=== PATIENT | female | born 1995 | race African-American/Black ===

== ENCOUNTER 2020-12-13 15:54 | Emergency (ER) | payer BC ==
[~2020-12-13] VITALS: Ht 180.3 cm; Wt 73.0 kg
--- NOTE | 2020-12-13 16:09 | NUR ---
The patient is [id number], c/o nausea vomiting, admits on smoking weed 4hrs [employer]. Denies pain. In room air and denies SOB. Respiration regular and unlabored. Abdomen soft and non-distended. Denies nausea/vomiting at this time. Attached to the monitor. Warm blanket provided for comfort. Will continue to monitor the patient.
[2020-12-13] MEDS ORDERED: IV NS 0.9% 1,000 ML BAG IV ONE (16:30)
[2020-12-13 16:36] LABS: BASOPHILS % (AUTO) 0.2 % (0.0-2.0); EOSINOPHILS % (AUTO) 1.8 % (0.0-6.0); HEMATOCRIT 40 % (33-45); HEMOGLOBIN 13.3 g/dL (11.5-14.8); LYMPHOCYTES # (AUTO) 1.5 K/uL (0.8-4.8); LYMPHOCYTES % (AUTO) 29.5 % (20.0-44.0); MEAN CORPUSCULAR HGB CONC 33 g/dl (31.0-36.0); MEAN CORPUSCULAR VOLUME 92 fL (82-100); MONOCYTES # (AUTO) 0.4 K/uL (0.1-1.30); MONOCYTES % (AUTO) 7.7 % (2.0-12.0); NEUTROPHILS % (AUTO) 60.8 % (43.0-81.0); PLATELET COUNT (AUTO) 190 K/uL (150-450); RED BLOOD CELL COUNT(AUTO) 4.36 MIL/uL (4.0-5.2)
[2020-12-13 16:43] LABS: CALCIUM, SERUM 8.8 mg/dL (8.5-10.1); CREATININE 0.9 mg/dL (0.6-1.3); POTASSIUM 3.8 mmol/L (3.5-5.1)
[2020-12-13 16:49] LABS: BILIRUBIN,DIRECT 0.1 mg/dL (0.0-0.2); BILIRUBIN,TOTAL 0.7 mg/dL (0.2-1.0); TOTAL PROTEIN, SERUM 8.2 g/dL (6.4-8.2)
--- NOTE | 2020-12-13 17:45 | NUR ---
URINE COLLECTED AND SENT TO THE LAB
[2020-12-13 18:00] LABS: BILIRUBIN,URINE SMALL (NEGATIVE); COLOR,URINE DARK YELLOW (YELLOW); LEUKOCYTE ESTERASE ,URINE Negative (NEGATIVE); NITRITE, URINE Positive (NEGATIVE); PH,URINE 5.5 (5.0-8.0); PROTEIN,URINE 30 mg/dl (NEGATIVE); UGLUCOSE Negative (NEGATIVE); UROBILINOGEN,URINE 0.2 EU/dL (0.2)
[2020-12-13 18:04] LABS: BACTERIA,URINE Many /HPF (None Seen); SQUAMOUS EPITHELIAL CELL,UR Few /HPF (None Seen)
[2020-12-13] MEDS ORDERED: FLUC150T PO (18:15)
[2020-12-13] MEDS ORDERED: ONDA4TAB5 PO (18:15)
[2020-12-13] MEDS ORDERED: CEPH500T PO (18:15)
--- NOTE | 2020-12-13 18:33 | NUR ---
The patient is alert and oriented x4. Denies pain. In room air and denies SOB. Breathing even and unlabored. Denies nausea/vomiting. Patient discharged to home in stable condition. Written and verbal after care instructions given. Patient verbalizes understanding of instruction.
[2020-12-13 18:34] VITALS: BP 128/75
== END 2020-12-13 18:35 | disposition home or self-care (01) ==
LOC: ER 15:56
DX: R55 Syncope and collapse (principal); N39.0 Urinary tract infection, site not specified; Z79.899 Other long term (current) drug therapy
CPT/HCPCS: 36415; 71045; 80048; 80076; 81001; 82962; 84703; 85025; 85730; 87077; 87086; 87186; 93005; 96360; 99285; J7030